=== PATIENT | female | born 1960 | race Caucasian/White ===

== ENCOUNTER 2018-03-04 09:51 | Emergency (ER) | payer OTHER, SELFPAY ==
[2018-03-04 09:52] VITALS: BP 139/82; PULSE 87; RESP 16; TEMP 36.3; O2SAT 98; BMI 30.7
[2018-03-04] MEDS: 0.9% Normal Saline 1,000 ML 1000 ML IV (10:15)
[2018-03-04 10:51] LABS: Absolute Lymphocyte Count 2.04 X10^3/ul (0.83-4.51); Absolute Neutrophil Count 4.4 X10^3/uL (2.0-7.7); Basophil# 0.03 X10^3/uL; Basophil% 0.4 % (0-1); Eosinophil# 0.24 X10^3/uL; Eosinophils% 3.3 % (0-5); Hemoglobin 13.1 g/dl (12.0-15.0); Lymphocyte # 2.04 X10^3/ul (4.0); Lymphocyte % 27.9 % (19-41); Mean Corp Hgb Conc 33.6 g/gl (32-36); Mean Corpuscular Hgb 29.9 pg (27.0-32.0); Mean Platelet Vol. 9.7 fl (6.2-12.0); Monocyte# 0.62 X10^3/uL; Monocyte% 8.5 % (0-10); Neutrophil # 4.36 X10^3/uL (2.7-7.7); Neutrophil % 59.6 % (47-70); POSITIVE COUNT NO; POSITIVE DIFFERENTIAL NO; POSITIVE MORPHOLOGY NO; Platelet Count 394 K/mm3 (150-450); RBC Distribution Width CV 13.9 % (11.6-14.6); RBC Distribution Width SD 44.6 fl (35.1-43.9); Red Blood Count 4.38 M/mm3 (4.2-5.4); White Blood Count 7.3 K/mm3 (4.4-11.0)
[2018-03-04 11:06] LABS: ALB/GLOB Ratio 0.9 RATIO (0.9-2.4); AST(SGOT) 43 U/L (15-37); Alanine Aminotransfer ALT/SGPT 59 U/L (13-56); Albumin, Serum 3.6 g/dL (3.2-5.0); Alkaline Phosphatase 101 U/L (45-117); Anion Gap 7 (5-15); BUN 10 mg/dL (7-18); BUN/Creat Ratio 11.1 RATIO (10-20); Calcium,Total 8.6 mg/dL (8.5-10.1); Chloride 106 mmol/L (98-107); EST Glomerular Filtration Rate 68 mL/min (>60); Est Glom Filt Rate - Afr Amer 83 mL/min (>60); Estimated Creatinine Clearance 72.07 ml/min; Globulin 3.9 g/dL (2.2-4.2); Glucose 98 mg/dL (74-106); Lipase 59 U/L (73-393); Potassium 3.5 mmol/L (3.5-5.1); Protein, Total 7.5 g/dL (6.4-8.2); Sodium Level 138 mmol/L (136-145)
[2018-03-04 11:28] LABS: Lactic Acid 0.8 mmol/L (0.4-2.0)
[2018-03-04 12:55] VITALS: BP 121/63; PULSE 69; RESP 18; O2SAT 100
--- NOTE | 2018-03-04 14:13 | ED.DCSUM_ITS ---
- ER Visit Summary Date of Service: 03/04/18 Chief Complaint: Diarrhea History of Present Illness: The patient is a 58 F who states for the past 2 weeks she has had diarrhea. It began on vacation [facility]. She states that her and her pretty much at the same thing to eat and he has not had any diarrhea. Diarrhea is not every day. Sometimes she will go a day or 2 without any bowel movements and then the diarrhea started again. She states is light brown contains pieces of food and then will change to yellowish-green. She has not had any recent antibiotics. No fevers. She notes an epigastric pain which she attributes to her history of GERD. Physical Examination: Afebrile vital signs are stable Gen: Well-nourished well-developed Head: Normocephalic atraumatic Eyes: Perrl EOMI ENT: TMs clear no rhinorrhea moist mucous membranes Neck: Supple no lymphadenopathy no JVD nontender CVS: Regular rate rhythm no murmurs normal S1-S2 Respiratory: No distress clear to auscultation bilaterally chest nontender Abdomen: Soft tender abdomen. Nondistended normal bowel sounds no masses Back: Nontender Extremity: Nontender no edema Skin: Normal color no rash Neuro: alert orientated ?3 CN II-XII intact normal strength sensation reflexes gait cerebellar Psych: Normal affect normal mood Test Results: CBC CMP lipase were normal. CT abdomen pelvis without oral and IV contrast was negative. Emergency Department Course and Treatment: Patient received a liter of IV fluids. She was unable to produce any stool for stool specimen. I wrote her an order to have this performed as an outpatient. This point I do not see a reason to hospitalize the patient. I do not see an obvious bacterial or inflammatory cause for the patient's symptoms. She will follow-up with her doctors which she has scheduled in just a few days. Impression: 1. Diarrhea This note was generated with [employer] dictation software. It may contain incorrect words, spelling, and punctuation that were not noted in review of the chart prior to signing ED Disposition - Plan for ED Patient: Disposition: Home or Assisted Living Chief Complaint: Diarrhea Instructions: ED Gastroenteritis Report Pend Referrals: Marlene Naranjo MD [Primary Care Provider] - Keep Tarun appointment
[2018-03-04 14:44] VITALS: BP 119/71; PULSE 79; RESP 16; O2SAT 99
== END 2018-03-04 14:45 | disposition home or self-care (01) ==
PROVIDERS: Emergency Provider Emergency Medicine; Family Provider Internal Medicine; PCP Internal Medicine
DX: R19.7 Diarrhea, unspecified (principal); R10.9 Unspecified abdominal pain; I10 Essential (primary) hypertension; K21.9 Gastro-esophageal reflux disease without esophagitis
CPT/HCPCS: 74177; 80053; 83605; 83690; 85025; 96360; 99284; J7030; Q9967

== ENCOUNTER 2018-03-08 11:37 | Emergency (ER) | payer OTHER, SELFPAY ==
[2018-03-08 11:38] VITALS: BP 137/79; PULSE 81; RESP 18; TEMP 36.6; O2SAT 100; BMI 31.4
[2018-03-08] MEDS: Ondansetron ODT 4 MG Tablet PO (11:55)
--- NOTE | 2018-03-08 11:59 | ED.DCSUM_ITS ---
- ER Visit Summary Date of Service: 03/08/18 Chief Complaint: Nausea and vomiting History of Present Illness: The patient is a 58 F past medical history of hypertension and anxiety. Patient was seen in the ER 4 days ago. At that time had a normal CBC, BMP, LFT and lipase. She also had a CT abdomen and pelvis which was unremarkable. She states she is a person hangs on a lot of stress. She had had diarrhea for 2 weeks that is since resolved. Today she had onset of nausea and vomiting. Several hours ago. Threw up approximately 4 times. No hematemesis. No fever. No melena. She has some abdominal cramping with the vomiting but that has all since resolved. Currently she has no abdominal pain. She has had both prior cholecystectomy and hysterectomy. She is also had a bladder repair with a sling. She denies any dysuria. No back pain. Physical Examination: Well-appearing middle-age female. Vital signs are stable and afebrile. H EENT exam unremarkable. Neck nontender no lymphadenopathy. Lungs are clear to auscultation bilaterally. Heart is regular rhythm and no murmur. Abdomen is soft and nontender. Normal bowel signs. Both the right upper and right lower quadrants are nontender. No hernias or masses. No signs of obstruction. Pressure 136/88. Patient has evidence of trauma moving all 4 extremities. Neurovascularly intact. Back nontender. Neurologic exam normal. Right Test Results: I reviewed the patient's recent labs and CAT scan. I do not feel she needs any imaging or labs at this time. A benign exam. Emergency Department Course and Treatment: Treated with p.o. Zofran. Positive p.o. fluids. Treatment Plan: Discharged home with Zofran prescription. Disposition: Discharge Impression: Acute nausea and vomiting. Acute anxiety. This note was generated with [employer] software. It may contain incorrect words, spelling, and punctuation that were not noted in review of the chart prior to signing ED Disposition - Plan for ED Patient: Chief Complaint: Nausea/Vomiting/Diarrhea Referrals: Marlene Naranjo MD [Primary Care Provider] -
--- NOTE | 2018-03-08 11:59 | ED.DEP ---
ED Disposition - Plan for ED Patient: Disposition: Home or Assisted Living Chief Complaint: Nausea/Vomiting/Diarrhea Instructions: ED Vomiting Diarrhea Nonspecific Ad Prescriptions: Ondansetron [Zofran Odt] 4 mg PO Q4H PRN PRN #14 tab.rapdis PRN Reason: zofran Referrals: Marlene Naranjo MD [Primary Care Provider] - 1 Week if not improving Additional Instructions: Plenty of fluids and rest. Follow-up your primary care physician or return to ER if feeling worse. Zofran as needed for nausea.
[2018-03-08 13:41] VITALS: BP 132/78; PULSE 85; RESP 16; O2SAT 98
== END 2018-03-08 13:43 | disposition home or self-care (01) ==
PROVIDERS: Emergency Provider Emergency Medicine; Family Provider Internal Medicine; PCP Internal Medicine
DX: R11.2 Nausea with vomiting, unspecified (principal); F41.9 Anxiety disorder, unspecified; Z90.49 Acquired absence of other specified parts of digestive tract; Z90.710 Acquired absence of both cervix and uterus; I10 Essential (primary) hypertension
CPT/HCPCS: 99283

== ENCOUNTER 2020-05-22 16:06 | Emergency (ER) | payer OTHER, SELFPAY ==
[2020-05-22 16:07] VITALS: BP 138/73; PULSE 74; RESP 18; TEMP 36.3; O2SAT 100; BMI 33.5
[2020-05-22 16:54] VITALS: O2SAT 100
--- NOTE | 2020-05-22 17:21 | EKG12_ITS ---
Test Reason : SOB Blood Pressure : / mmHG Vent. Rate : 065 BPM Atrial Rate : 065 BPM P-R Int : 170 ms QRS Dur : 098 ms QT Int : 430 ms P-R-T Axes : 053 016 038 degrees QTc Int : 447 ms Normal sinus rhythm Normal ECG Confirmed by RUFINO KAMINSKI, SUE ([id number]), communications editor MICHAEL REECE ([id number]) on 05/23/2020 1:15:03 PM Referred By: MARIBEL Confirmed By:JOSLYN JOY MD
--- NOTE | 2020-05-22 17:21 | RAD_ITS ---
STUDY: X-RAY CHEST REASON FOR EXAM: Female, 60 years old. DYSPNEA ON EXERTION TECHNIQUE: Single frontal view of the chest. COMPARISON: None. FINDINGS: The lungs are clear and expanded. There is no demonstrated pleural abnormality. Normal size heart. Normal mediastinum and maximiliano. Normal visualized pulmonary arteries. Normal visualized aortic arch and descending thoracic aorta. Normal visualized thoracic spine. Normal visualized ribs, clavicles, and shoulders. There is no demonstrated abnormality of the visualized soft tissue structures of the upper abdomen. RAD/Chest 1 View (Portable) IMPRESSION: Normal x-ray examination of the chest. Electronically Signed: Richard Kapadia MD at 19:06 EST , Service support ,
--- NOTE | 2020-05-22 17:23 | ED.DCSUM_ITS ---
- ER Visit Summary Date of Service: 05/22/20 Chief Complaint: Shortness of breath History of Present Illness: The patient is a 60 F who presents with shortness of breath that began today. Patient states she was on her spending cycle when she started to develop a cough and then became short of breath. Patient states her primary care physician is evaluating her for exercise-induced asthma. Patient states she had a similar episode when she was exercising in the past. Patient states she felt like she had a tickle in her throat which caused her to cough and then caused her shortness of breath. Patient states her breathing is improving while she is resting. Patient denies any chest pain or palpitations. Patient denies any nausea or vomiting. Patient denies any fevers or chills. Physical Examination: Vital signs are stable. Patient is afebrile. Patient is in no acute distress. Oral mucosa is pink and moist. Neck is supple. Trachea is midline. There is no JVD. Heart was regular rate and rhythm. Lungs showed mild expiratory wheezing that is worse with coughing. There is good respiratory effort noted. There are no retractions noted. Abdomen is soft. Bowel sounds are normal. There is no tenderness. Cranial nerves II through XII are intact. There are no focal motor or sensory deficits. Test Results: Portable chest x-ray was obtained. There is no acute cardiopulmonary process. This was interpreted by the radiologist and reviewed by myself. Emergency Department Course and Treatment: Patient was given a DuoNeb aerosol here. Patient felt better on reevaluation. Patient was given a prescription for albuterol inhaler. Patient was instructed to follow-up with her primary care physician in 5 to 7 days. Patient understood and was agreeable with the plan. All questions were answered. Disposition: Discharge home Impression: Reactive airway disease This note was generated with [employer] dictation software. It may contain incorrect words, spelling, and punctuation that were not noted in review of the chart prior to signing ED Disposition - Plan for ED Patient: Disposition: Home or Assisted Living Diagnosis: Reactive airway disease Instructions: ED REACTIVE AIRWAY DISEASE Adult Prescriptions: Albuterol Inhaler [Ventolin Hfa] 1 - 2 puff INHALATION Q4H PRN PRN #1 inhaler PRN Reason: Wheezing Prescription Printed Referrals: Marlene Naranjo MD [Primary Care Provider] - 5-7 Days
[2020-05-22] MEDS: Ipratropium/Albuterol Sulfate 3 ML AMPUL.NEB INHALATION (17:36)
[2020-05-22 17:41] VITALS: PULSE 70; RESP 16
[2020-05-22 18:06] VITALS: PULSE 67; RESP 18; O2SAT 100
[2020-05-22 19:26] VITALS: BP 142/59; PULSE 81; RESP 16; O2SAT 95
== END 2020-05-22 19:27 | disposition home or self-care (01) ==
PROVIDERS: Emergency Provider Emergency Medicine; PCP Internal Medicine
DX: J45.909 Unspecified asthma, uncomplicated (principal)
CPT/HCPCS: 71045; 93005; 94640; 99282

== ENCOUNTER 2024-04-14 21:22 | Emergency (ER) | payer OTHER, SELFPAY ==
[2024-04-14 21:23] VITALS: BP 164/53; PULSE 77; RESP 16; TEMP 36.1; O2SAT 100; BMI 34.2
[2024-04-14 22:22] VITALS: BP 173/67; PULSE 72; RESP 16; TEMP 37.1; O2SAT 100
[2024-04-14] MEDS: 0.9% Normal Saline (1000mL) 1,000 ML 999 ML IV (22:26)
[2024-04-14 22:31] LABS: Absolute Lymphocyte Count 3.79 X10^3/uL (0.83-4.51); Absolute Neutrophil Count 4.4 X10^3/uL (2.0-7.7); Basophil# 0.06 X10^3/uL; Basophil% 0.6 % (0-1); Eosinophils% 2.2 % (0-5); Hematocrit 31.9 % (37-47); Hemoglobin 10.5 g/dL (12.0-15.0); Lymphocyte # 3.79 X10^3/ul (0.83-4.51); Lymphocyte % 40.8 % (19-41); Mean Corp Hgb Conc 32.9 g/dL (32-36); Mean Corpuscular Hgb 31.4 pg (27.0-32.0); Mean Corpuscular Volume 95.5 fL (81-99); Mean Platelet Vol. 9.8 fl (6.2-12.0); Monocyte# 0.83 X10^3/uL; Monocyte% 8.9 % (0-10); NRBC Flagged by Analyzer 0 % (0-5); Neutrophil # 4.36 X10^3/uL (2.7-7.7); Neutrophil % 47.1 % (47-70); Platelet Count 268 K/mm3 (150-450); RBC Distribution Width CV 13.8 % (11.6-14.6); RBC Distribution Width SD 48.1 fl (35.1-43.9); Red Blood Count 3.34 M/mm3 (4.2-5.4); White Blood Count 9.3 K/mm3 (4.4-11.0)
[2024-04-14 22:40] LABS: International Normalized Ratio 1.1; Prothrombin Time (Protime)PT. 13.9 SECONDS (11.7-14.9)
[2024-04-14 22:46] LABS: Anion Gap 6 (5-15); BUN 16 mg/dL (7-18); Calcium,Total 9.3 mg/dL (8.5-10.1); Chloride 107 mmol/L (98-107); EST Glomerular Filtration Rate 60 mL/min (>60); Est Glom Filt Rate - Afr Amer 72 mL/min (>60); Estimated Creatinine Clearance 74.36 ml/min; Glucose 106 mg/dL (74-106); Sodium Level 138 mmol/L (136-145)
[2024-04-14 23:00] VITALS: BP 166/78; PULSE 73; RESP 16; TEMP 36.7; O2SAT 100
--- NOTE | 2024-04-14 23:07 | CT_ITS ---
STUDY: CTA OF THE ABDOMINAL AORTA AND BILATERAL LOWER EXTREMITIES REASON FOR EXAM: Female, 64 years old. HAD VASCULAR ANGIOPLASTY DONE . POSSIBLE PSEUDOANEURYSM OF RIGHT LEG RADIATION DOSAGE (If Supplied By Facility): CTDIvol = ( 8.0 ) mGy, DLP = ( 1952.83 ) mGycm TECHNIQUE: Axial CT angiography multi-detector data acquisition was obtained from the lung bases to the toe following intravenous administration of IV 100mL Isovue-370. Axial images and MIP images were reconstructed from the axial data set. Post-processing of the angiographic images was performed, with multiplanar reformation and 3D reconstruction. Individualized dose optimization techniques were used for this CT. TECHNICAL QUALITY: Good COMPARISON: None. Descriptors of Narrowing: None (0%) Mild (< 50%) Moderate (50-70%) Severe (70-90%) Subtotal/Total Occlusion (90-100%) Non-Evaluable (technically non-diagnostic FINDINGS: Abdominal aorta: No demonstrated narrowing. Celiac and superior mesenteric arteries: No demonstrated narrowing. Inferior mesenteric artery: No demonstrated narrowing. Right renal artery(arteries): No demonstrated narrowing. Left renal artery(arteries): No demonstrated narrowing. Right common iliac artery: No demonstrated narrowing. Right external iliac artery: No demonstrated narrowing. Right internal iliac artery: No demonstrated narrowing. Left common iliac artery: No demonstrated narrowing. Left external iliac artery: No demonstrated narrowing. Left internal iliac artery: No demonstrated narrowing. RIGHT LOWER EXTREMITY Right common femoral artery: No demonstrated narrowing. 3 cm right groin hematoma likely from recent catheterization but no pseudoaneurysm. Right profundus femoris: No demonstrated narrowing. Right superficial femoral: No demonstrated narrowing. Right popliteal artery: No demonstrated narrowing. Right tibioperoneal trunk: No demonstrated narrowing. Right anterior tibial artery: No demonstrated narrowing. Right posterior tibial artery: No demonstrated narrowing. Right peroneal artery: No demonstrated narrowing. LEFT LOWER EXTREMITY Left common femoral artery: No demonstrated narrowing. Left profundus femoris: No demonstrated narrowing. Left superficial femoral: No demonstrated narrowing. Left popliteal artery: No demonstrated narrowing. Left tibioperoneal trunk: No demonstrated narrowing. Left anterior tibial artery: No demonstrated narrowing. Left posterior tibial artery: No demonstrated narrowing. Left peroneal artery: No demonstrated narrowing. CT/CTA Abd w/Runoff W/WO Contrast IMPRESSION: Normal abdominal aorta and bilateral lower extremity run-off without a hemodynamically significant stenosis. 3 cm right groin hematoma but no pseudoaneurysm. Electronically Signed: Dawit Eastman MD at 23:54 EDT ,
[2024-04-15] VITALS: BP 133/60; PULSE 72; RESP 16; TEMP 36.6; O2SAT 100
--- NOTE | 2024-04-15 00:13 | EDS_ITS ---
HPI History of Present Illness Chief Complaint: Lower Extremity Injury Informant: patient and spouse/S.O. Narrative Narrative: Patient is a 64-year-old female with past medical history of hypertension asthma and aortitis who underwent a angioplasty at the [facility] last week. She states there was complications such as showering of clots and a vascular dissection which required her to stay in the ICU and receive doses of heparin as well as undergo clot removal. She was recently discharged and states that she has been doing well but that this evening when she got up to go to the bathroom felt an area of firmness in her right groin. She reports she contacted her surgeon who advised her to come to the hospital for evaluation [facility] Medical History (Updated 04/15/24 @ 00:[address] Noel Carranza, ) PVC (premature ventricular contraction) Anxiety Orthostatic hypotension Neuropathy Aortitis Asthma HTN (hypertension) Home Medications ?Medication ?Instructions ?Recorded ?Last Taken ?Type amitriptyline 25 mg tablet 35 mg PO QHS 03/04/18 Unknown History atenolol 50 mg tablet 50 mg PO DAILY 03/04/18 Unknown History duloxetine 30 mg capsule,delayed 60 mg PO DAILY 03/04/18 Unknown History release estradiol 0.5 mg tablet (Estrace) 0.5 mg PO DAILY 03/04/18 Unknown History melatonin 5 mg tablet 5 mg PO QHS 03/04/18 Unknown History polyethylene glycol 3350 17 gram 17 g PO DAILY 03/04/18 Unknown History oral powder packet psyllium husk 0.4 gram capsule 0.4 g PO DAILY 03/04/18 Unknown History (Metamucil) triamterene 75 0.5 tab PO Q2D 03/04/18 Unknown History mg-hydrochlorothiazide 50 mg tablet ondansetron 4 mg disintegrating 4 mg PO Q4H PRN PRN zofran ##14 03/08/18 Unknown Rx tablet albuterol sulfate 90 mcg/actuation 1 - 2 puff inhalation Q4H PRN PRN 05/22/20 Unknown Rx aerosol inhaler Wheezing ##1 aspirin 81 mg capsule 81 mg PO DAILY 04/14/24 Unknown History clopidogrel 75 mg tablet (Plavix) 75 mg PO DAILY 04/14/24 Unknown History montelukast 10 mg tablet 10 mg PO DAILY 04/14/24 Unknown History Allergy/AdvReac Type Severity Reaction Status Date / Time Sulfa (Sulfonamide Allergy Rash Verified 06/02/22 13:57 Antibiotics) (sulfa drugs) Surgical History (Updated 04/14/24 @ 22:04 by Prerna Duron) History of thrombectomy H/O angioplasty Social History Smoking Status: Never smoker ROS ROS ED Constitutional Constitutional ED: Denies chills or fever(s) Eyes Eyes: Denies blurry vision or change in vision ENT ENT ED: Denies sore throat Cardiovascular Cardiovascular: Denies chest pain Respiratory/Chest Respiratory/Chest: Denies cough or dyspnea Gastrointestinal Gastrointestinal: Denies abdominal pain, diarrhea, nausea or vomiting Genitourinary Genitourinary ED: Denies dysuria Musculoskeletal Musculoskeletal: Reports other Details: Positive right hip/leg pain Integumentary Reports other Details: Positive ecchymosis ; Denies rash Neurologic Neurologic: Denies headache(s) or paresthesias Hematologic/Lymphatic Hematologic/Lymphatic: Reports easy bleeding and easy bruising EXAM Physical Exam Const Vital Signs: 04/14/24 21:23 04/14/24 22:22 Temperature 97 F L 98.7 F Temperature Source Temporal Oral Pulse Rate 77 72 Respiratory Rate 16 16 Blood Pressure 164/53 H 173/67 H Blood Pressure Mean 90 102 Pulse Ox 100 100 Oxygen Delivery Method Room Air Room Air Positive well nourished and well developed General Appearance ED: well developed HEENT HEENT Narrative: Normocephalic atraumatic Eyes PERRL and EOMs intact bilaterally General Eye ED: Negative for pale conjunctiva or scleral icterus Neck supple Resp normal respiratory effort and clear to auscultation bilaterally Resp Narrative: No nasal flaring retractions tachypnea or accessory muscle use Cardio regular rate and regular rhythm GI normal to inspection, nondistended, normoactive bowel sounds, non-tender, non- distended and no masses Auscultation: normoactive bowel sounds Palpation: soft Extremity Extremity Narrative: Right lower extremity is neurovascularly intact. Capillary refills less than 3- second. No signs of arterial occlusion. Patient has ecchymosis and soft tissue swelling in the right groin consistent with recent vascular cannulization/angioplasty procedure. There is a small puncture wound overlying the femoral vein consistent with this. There is a faint ooze of blood from it but no arterial bleed or brisk venous bleed. No obvious pulsatile mass. No sig nificant firmness palpated. Of note patient states she was able to express blood from the puncture site and that the area does feel improved at this time Neuro oriented x3, CN's II-XII intact bilaterally and no sensory deficits noted Sensorium / Orientation: alert Psych mental status grossly normal Skin Skin Narrative: Soft tissue changes in the right groin as documented above MDM MDM MDM Narrative Medical decision making narrative: Patient arrived to the ER hypertensive but she has a past medical history of this and otherwise vitals are stable. She is on antiplatelet but denies any true thinners such as Coumadin Eliquis or Xarelto. With the recent angioplasty and report of pain and bruising and swelling there is concern for potential dissection versus pseudoaneurysm versus acute blood loss anemia. Secondary to this I elected to perform basic laboratory studies as well as a CTA with runoff. The blood work revealed anemia with a hemoglobin of 10.5 but this is well above a transfusion value of 7 and otherwise no clinically significant finding. CTA revealed a hematoma in the right groin which would correlate with the patient's report of firmness and the improvement when she expressed the region. However there is no dissection or pseudoaneurysm. Therefore this time she is not requiring a blood transfusion there is no pseudoaneurysm or dissection she has no signs of arterial occlusion and is otherwise safe for discharge. History & Record Review Discussion w/independent historian: Patient and Significant other Lab Data Attestation: I reviewed the patient's lab results. Labs: Laboratory Results - last 24 hr 04/14/24 22:20 WBC 9.3 RBC 3.34 L Hgb 10.5 L Hct 31.9 L MCV 95.5 MCH 31.4 MCHC 32.9 RDW Std Deviation 48.1 H RDW Coeff of Az 13.8 Plt Count 268 MPV 9.8 Immature Gran % (Auto) 0.400 Neut % (Auto) 47.1 Lymph % (Auto) 40.8 [place] % (Auto) 8.9 Eos % (Auto) 2.2 Baso % (Auto) 0.6 Absolute Neuts (auto) 4.4 Absolute Lymphs (auto) 3.79 Nucleated RBC % 0 PT 13.9 INR 1.1 APTT 28.0 Sodium 138 Potassium 4.0 Chloride 107 Carbon Dioxide 25.0 Anion Gap 6 BUN 16 Creatinine 1.00 Estim Creat Clear Calc 74.36 Est GFR (MDRD) Af Amer 72 Est GFR (MDRD) Non-Af 60 BUN/Creatinine Ratio 16.0 Glucose 106 Calcium 9.3 Radiography Diagnostic Testing: Clinical Impression(s) from Imaging Studies Abdomen/Pelvis CTA 04/14/24 23:07 IMPRESSION: Normal abdominal aorta and bilateral lower extremity run-off without a hemodynamically significant stenosis. 3 cm right groin hematoma but no pseudoaneurysm. Electronically Signed: Dawit Eastman MD at 23:54 EDT , Discharge Plan Triage Chief Complaint: Lower Extremity Injury ED Provider: Noel Carranza Dx/Rx/DC Orders Clinical Impression: Postoperative hematoma, Hypertension, Aortitis, History of asthma Instructions: ED Hematoma Prescriptions: No Action polyethylene glycol 3350 17 GM powder in packet 17 g PO DAILY amitriptyline 25 MG tablet 35 mg PO QHS estradiol [Estrace] 0.5 MG tablet 0.5 mg PO DAILY triamterene-hydrochlorothiazid 1 TABLET tablet 0.5 tab PO Q2D atenolol 50 MG tablet 50 mg PO DAILY duloxetine 30 MG capsule 60 mg PO DAILY melatonin 5 MG tablet 5 mg PO QHS psyllium husk [Metamucil] 0.4 GM capsule 0.4 g PO DAILY ondansetron 4 MG tablet,disintegrating 4 mg PO Q4H PRN PRN (Reason: zofran) Qty: 14 0RF albuterol sulfate 1 INHALER inhaler 1 - 2 puff INHALATION Q4H PRN PRN (Reason: Wheezing) Qty: 1 0RF aspirin 81 mg capsule 81 mg PO DAILY montelukast 10 mg tablet 10 mg PO DAILY clopidogrel [Plavix] 75 mg tablet 75 mg PO DAILY Primary Care Provider: Marlene Naranjo Referrals: Marlene Naranjo MD [Primary Care Provider] - Activity Restrictions/Additional Instructions: Please continue all of your home medications as directed by your doctor and follow-up with your vascular surgeon for repeat evaluation as directed. Return to the ER if you have any further concerns. Print Language: [place] Disposition Disposition: Home, Self Care
[2024-04-15 00:29] VITALS: BP 125/59; PULSE 82; RESP 16; TEMP 36.6; O2SAT 97
== END 2024-04-15 00:33 | disposition home or self-care (01) ==
PROVIDERS: Emergency Provider Emergency Medicine; PCP Internal Medicine; Referring Provider Emergency Medicine; Visit Provider Emergency Medicine
DX: I97.638 Postprocedural hematoma of a circulatory system organ or structure following other circulatory system procedure (principal); I10 Essential (primary) hypertension; J45.909 Unspecified asthma, uncomplicated; Z79.82 Long term (current) use of aspirin; Z79.02 Long term (current) use of antithrombotics/antiplatelets; I77.6 Arteritis, unspecified; Z79.890 Hormone replacement therapy
CPT/HCPCS: 75635; 80048; 85025; 85610; 85730; 99283; J7030; Q9967; A4216